=== PATIENT | female | born 1940 | race Caucasian/White ===

== ENCOUNTER 2017-10-29 12:39 | Emergency (ER) | payer MEDICARE ==
[~2017-10-29] VITALS: Ht 162.6 cm; Wt 83.9 kg
[~2017-10-29 12:39] MED LIST: FLUOXETINE HCL20 MG; LEVOTHYROXINE50 MCG; OXYBUTYNIN CHLO10 MG; PRILOSEC20 MG
== END 2017-10-29 14:19 | disposition home or self-care (01) ==
LOC: ED 12:39
DX: S00.93XA Contusion of unspecified part of head, initial encounter (principal); S70.01XA Contusion of right hip, initial encounter; E03.9 Hypothyroidism, unspecified; F32.9 Major depressive disorder, single episode, unspecified; Z79.899 Other long term (current) drug therapy; W18.30XA Fall on same level, unspecified, initial encounter; Y92.89 Other specified places as the place of occurrence of the external cause
CPT/HCPCS: 99282

== ENCOUNTER 2020-10-28 13:32 | Observation (INO) | payer OTHER, MEDICARE ==
[~2020-10-28] VITALS: Ht 162.6 cm; Wt 86.5 kg
[2020-10-28] MEDS ORDERED: SULFAMETHOXAZO1 EAC1 PO (18:35)
--- NOTE | 2020-10-28 22:00 | NUR ---
THIS RN TRANSPORTED pt FROM ER TO FLOOR. 4PA TO MOVE FROM STRETCHER TO BED. pt TOLERATED WELL. CMS INTACT TO RIGHT FOOT, COOL TO THE TOUCH. SPLINT IN PLACE. pt HAS BRUISE TO LEFT BACK OF THE LEG AND DISCOLORED AREA IN GLUTEAL CLEFT. pt WAS ABLE TO GET UP PIVOT BSC, 2PA. VOID, BACK TO BED. LEG ELEVATED. ASSESSMENT DONE. JOHN CRAFT IN ROOM TO DO ADMISSION.
--- NOTE | 2020-10-28 22:15 | NUR ---
PT ADMITTED TO ROOM 119 FROM ED. RA, A/O, REQUIRED MAX ASSISTANCE TO MOVE FROM BED TO STRETCHER. RT FOOT/LEG WRAPPED TO KNEE WITH HORACIO WRAP. ONCE INTO BED, PT WAS TRANSFERED TO BSC, USED FWW BSC, BY GEAR MACHINE OPERATOR GENERAL AND PT PRIMARY RN.
--- NOTE | 2020-10-28 23:03 | NUR ---
NOTIFIED BY LUANA LOPEZ THAT pt IS REPORTING DISCOMFORT IN UPPER GASTRIC AREA. pt STATED "IT FEELS LIKE GAS. I GET IT SOMETIMES." BLOOD PRESSURE WNL, NO CARDIAC ISSUES NOTED ON TELE. pt SITTING UP TO DRINK ENSURE.
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
--- NOTE | 2020-10-28 23:08 | NUR ---
pt BURPED AND REPORTS THAT PAIN IS NOW RELIEVED.
--- NOTE | 2020-10-29 00:30 | NUR ---
CALL LIGHT ON. ASSISTED pt TO REPOSITION. PAIN "OKAY" AT THIS TIME. CALL LIGHT WITHIN REACH. SITTING IN BED WATCHING TV.
--- NOTE | 2020-10-29 02:30 | NUR ---
2 PA TO BEDSIDE COMMODE. PATIENT IS BACK IN BED. WATER WITHOUT ICE REFILLED. NO OTHER NEEDS AT THIS TIME.
--- NOTE | 2020-10-29 02:31 | NUR ---
CALL LIGHT ON. pt UP TO BSC 2PA PIVOT TRANSFER. SMALL VOID. pt BACK TO BED. ASSESSMENT DONE. CMS INTACT ON RIGHT FOOT, NOW WARM AND PINK. ELEVATED. pt DENIES PAIN. RESTING IN BED. CALL LIGHT WITHIN REACH.
--- NOTE | 2020-10-29 04:30 | NUR ---
ROUNDED ON pt. RESTING IN BED WITH EYES CLOSED, RESPIRATIONS REGULAR. RIGHT LEG ELEVATED. CALL LIGHT WITHIN REACH.
--- NOTE | 2020-10-29 05:56 | NUR ---
IN TO DO VITALS. pt REPORTED NEW NUMBNESS AND TINGLING IN FINGERS AND TOES. PULSES WELL FELT. pt UP TO VOID BSC. CALL LIGHT WITHIN REACH. 2PA FWW.
--- NOTE | 2020-10-29 06:09 | NUR ---
CALL LIGHT ON. pt VOIDED. UP TO CHAIR, 2PA FWW PIVOT. LEGS ELEVATED. CALL LIGHT WITHIN REACH.
--- NOTE | 2020-10-29 07:15 | NUR ---
BEDSIDE HANDOFF REPORT RECEIVED FROM SPECIALIST MANAGERS RN. PT SITTING IN CHAIR, DENIES NEEDS AT THIS TIME.
--- NOTE | 2020-10-29 07:42 | NUR ---
PT AWAKE IN CHAIR. PT VERY CONCERNED ABOUT A CAT AT HOME THAT NEEDS TAKEN CARE OF. PT SEEMS STRESSED ABOUT HOME LIFE, SAYS THERE ARE NO CONTACTS IN TOWN. THIS KNITTING MACHINE TENDER NOTIFIED PT ABOUT CASE MANAGEMENT DAVID. JOHN OCHOA NOTIFIED. PT WHITE BOARD UPDATED AND WARM CLOTH GIVEN. FRESH WATER GIVEN. CALL LIGHT WITHIN REACH, NO FURTHER NEEDS AT THIS TIME.
--- NOTE | 2020-10-29 08:44 | NUR ---
PT SITTING IN CHAIR. PT ON ROOM AIR, LUNG SOUNDS CLEAR, DENIES SOB. PT REPORT OF NUMBNESS THAT HAS BEEN GRADUALLY INCREASING OVER THE LAST SEVERAL MONTHS IN ALL EXTREMITITES, CURRENTLY NO WORSE THAN USUAL. PT DENIES NAUSEA, BOWEL TONES ACTIVE, TOLERATING REGULAR DIET, BREAKFAST AT BASELINE. WITH WITH SPLINT TO RIGHT FOOT, PULSE PALPABLE, CAP REFILL 1-2 SECONDS, TOES WARM. DISCUSSED PLAN OF CARE, PT CONCERNED ABOUT SOCIAL PROBLEMS, CASE MANAGEMENT AWARE OF CONCERNS AND WILL ROUND ON PT TODAY. PT DENIES OTHER NEEDS AT THIS TIME.
[2020-10-29] MEDS ORDERED: TYLENOL325 MG PO (09:29)
[2020-10-29] MEDS ORDERED: NASAL DECONGES120 MG PO (09:29)
[2020-10-29] MEDS ORDERED: SYNTHROID75 MCG PO (09:29)
[2020-10-29] MEDS ORDERED: MUCINEX600 MG PO (09:30)
[2020-10-29] MEDS ORDERED: TUMS SMOOTHIES300 MG PO (09:31)
[2020-10-29] MEDS ORDERED: GAS-X125 M1 PO (09:31)
--- NOTE | 2020-10-29 09:31 | NUR ---
MED REC COMPLETE
--- NOTE | 2020-10-29 10:30 | NUR ---
Pt. resides in a house in [place]. She is currently getting and plans on moving to [place] the end of the month with her daughter. She states concern as spouse left 8 days ago and she has not been able to contact. Her cat is at home and locked in the garage She has a walker at home, but does not feel secure with it as it is a 4 wheel walker. She is unsure, but thinks she may need to be non Wt bearing for 6 weeks, she has not seen Dr. Encarnacion at this time. Per [address] Shipley, pt will be able to dc today. She denies having anyone who can assist her. She denies friends and states she has no one she can call. She was able to find her daughter's phone number in her purse and I dailed the number for her. Daughter planned on arriving the end of the month to assister her to move. Pt given information on ordering groceries on line, [employer] for [employer], She signed the contract for [employer]. Transport will cook pickled meat FWW walker and bring to the hospital for pt to dc to home with , referral sent to Margarette Godoy to check in on pt. Pt may need assist with food or meals. Pt is aware of all the above and denies other needs. Transport will cook pickled meat pts wc from [facility] and then pick pt up for transport to home at 4 pm.
--- NOTE | 2020-10-29 10:44 | NUR ---
SPOKE WITH KEENA AT DR AYALA OFFICE REGARDING DC, WB STATUS AND FU APPT. SCHEDULED FOR THIS WEDNESDAY AND NON WEIGHTBEARING UNTIL APPT WITH HIM
--- NOTE | 2020-10-29 14:00 | NUR ---
Notified by staff, pt now stating she is unable to get out of the chair or walk without assist. Into room with charge nurse. Spoke with pt as earlier she stated she is walking well with the walker. Asked pt to stand with walker and walk in the room. Pt has great difficulty standing and is very shakey. She is unable to take a step as she is nonwt bearing. Discussed options and pts states she can afford an assisted living. Discussed assisted livings in the area and suggested she pick one which has a respite bed as she would like to check for a bed a [facility]. Called and spoke with Ewa and she will check for a bed availability in their [facility] and in their respite room in the main building.
--- NOTE | 2020-10-29 14:21 | NUR ---
PT ASSISTED FROM BSC TO CHAIR. PT VERY UNSTEADY ON FEET AND NEEDED QUEING FOR PROPER USE OF WALKER, DISCUSSED SAFETY AT HOME AND PT HAS SOME OBSTICALS TO GET INTO HER HOME. THIS RN HAS CONCERNS ABOUT PT SAFETY FOR DISCHARGE, DISCUSSED WITH CASE MANAGEMENT AND THEY WILL COME TO SPEAK TO PT.
--- NOTE | 2020-10-29 15:00 | NUR ---
Received call from [facility]. Respite bed is available and she will be here tomorrow at 1330 to speak with pt and discuss cost and what will be provided. Updated pt and encouraged pt to practice pivot transfers from bed to commode. PT in room and encouraged pt to practice transfer at this time.
--- NOTE | 2020-10-29 17:25 | NUR ---
PT ASSISTED TO ORDER DINNER. UPDATED ON PLAN OF CARE AND ASSISTED LIVING FACILITY EVALUATION TOMORROW. PT DENIES OTHER NEEDS AT THIS TIME.
--- NOTE | 2020-10-29 17:56 | NUR ---
PT ON ROOM AIR, LUNG SOUNDS CLEAR. IV SALINE LOCKED. TOLERATING DIET. PT WAS UNSAFE FOR DISCHARGE MOBILITY WAS POOR. 1PA WITH FWW, P.T. PLAN FOR ASSISTED LIVING FACILITY EVAL TOMORROW. VOIDING QS. NON WEIGHT BEARING TO RLE, SPLINT IN PLACE.
--- NOTE | 2020-10-29 19:28 | NUR ---
RECEIVED REPORT FROM JOHN OCHOA. pt RESTING IN CHAIR, FINISHED WITH DINNER. NO REQUESTS AT THIS TIME. WHITEBOARD UPDATED. CALL LIGHT WITHIN REACH.
--- NOTE | 2020-10-29 20:50 | NUR ---
ALFRED LOPEZ AND MARLENY LOPEZ IN ROOM TO ASSIST pt TO BED.
--- NOTE | 2020-10-29 21:27 | NUR ---
pt REQUESTED THAT HER COME VISIT. ASSESSMENT DONE. pt DENIED PAIN AT THIS TIME. CMS INTACT. NO CHANGES IN NUMBNESS AND TINGLING. pt STATED "I HAD A BANDAID ON MY FINGER AND I TOOK IT OFF. DO YOU KNOW WHY IT WAS THERE?" pt UNABLE TO RECALL WHAT HAPPENED TO HAND BUT WAS ABLE TO RECALL EVENTS LEADING TO HER HOSPITALIZATION. RULA ARRIVED. CALL LIGHT WITHIN REACH.
--- NOTE | 2020-10-29 22:05 | NUR ---
ROUNDED ON pt. REPORTED A PRODUCTIVE DISCUSSION WITH RULA. pt REPORTED SHE WILL HAVE A MEETING AT 1330 WITH [facility] AND SHE IS LOOKING FORWARD TO HAVING MORE HELP. PROVIDED A PUDDING PER REQUEST. RIGHT LEG ELEVATED. CALL LIGHT WITHIN REACH.
--- NOTE | 2020-10-29 23:32 | NUR ---
THIS WOOD PATTERNMAKER APPRENTICE AND PRIMARY RN WILMA HELPED PATIENT USE THE BEDSIDE COMMODE. PATIENT IS BACK IN BED NOW. CALL LIGHT WITHIN REACH. NO OTHER NEEDS AT THIS TIME.
--- NOTE | 2020-10-30 01:30 | NUR ---
ROUNDED ON pt. RESTING IN BED WITH DARK GLASSES ON. RESPIRATIONS REGULAR AND UNLABORED. RIGHT LEG ELEVATED. CALL LIGHT WITHIN REACH.
--- NOTE | 2020-10-30 02:15 | NUR ---
CHECKED ON pt. pt SITTING ON SIDE OF BED. REPORTED THAT SHE NEEDED TO URINATE. 2PA TO BSC. INCONT VOID AND MEASURED VOID. pt MOVED BACK TO BED PIVOT TRANSFER. ASSESSMENT DONE. DENIES PAIN AT THIS TIME. pt RESTING IN BED, RIGHT FOOT ELEVATED. CALL LIGHT WITHIN REACH.
--- NOTE | 2020-10-30 02:32 | NUR ---
HEARD SOMEONE SAYING TARUN. FOUND PATIENT DANGLING BY THE BED STATED SHE CANNOT FIND THE CALL LIGHT. 2 PA TO BEDSIDE COMMODE. CHANGED WHITE CHUX AND PULL UPS. PATIENT IS BACK IN BED. CALL LIGHT WITHIN REACH. WATER REFILLED WITHOUT ICE.
--- NOTE | 2020-10-30 04:03 | NUR ---
CALL LIGHT ON. pt UP TO VOID, 2PA PIVOT TRANSFER TO BSC. pt RATED BACK PAIN 5/10 PRN GIVEN (SEE MAR). NO FURTHER REQUESTS AT THIS TIME. pt LAYING IN BED. LEGS ELEVATED.
--- NOTE | 2020-10-30 06:00 | NUR ---
ROUNDED ON pt. RESTING IN BED WITH EYES CLOSED, RESPIRATIONS REGULAR AND UNLABORED. CALL LIGHT WITHIN REACH.
--- NOTE | 2020-10-30 06:53 | NUR ---
pt WOKE TO VOICE. 2PA PIVOT TO BSC. VOID, BACK TO BED. VITALS DONE. NO REQUESTS AT THIS TIME. CALL LIGHT WITHIN REACH.
--- NOTE | 2020-10-30 07:15 | NUR ---
TOOK REPORT ON PT. PT IN ROOM WAITING FOR BREAKFAST. DENIES NEEDS AT THIS TIME.
--- NOTE | 2020-10-30 09:00 | NUR ---
In to speak with Zoya, she is wanting an update. REminded we had discussed yesterday afternoon, Ewa from [facility] will visit and see her this afternoon at 1330 to evaluate for placement to her AFC. Discussed with pt if she feels she is able to transfer self. Pt states she cannot and I will update Ewa prior to her visit pt is not safe in transferring on her own and will require 1 person assist for transfers at night.
--- NOTE | 2020-10-30 10:00 | NUR ---
PATIENT ASSISTED TO CHAIR BY KARYN METZGER. VITALS AND I&OS CHARTED. LINENS CHANGED, CALL LIGHT IN REACH, NO OTHER NEEDS AT THIS TIME
--- NOTE | 2020-10-30 13:01 | NUR ---
PT SITTING IN CHAIR WATCHING TV EATING LUNCH. CALL LIGHT IN REACH. PT DENIES NEEDS AT THIS TIME.
--- NOTE | 2020-10-30 13:32 | EKG ---
[facility] [address] [facility] [place] [address] Signed Normal sinus rhythm Normal ECG No previous ECGs available Confirmed by RAMO ALEJANDRA MD ([id number]) on 10/30/2020 1:32:00 PM Electronically Signed By: RAMO ALEJANDRA MD 10/30/20 1332 PATIENT NAME: PATRICIO BAJWA Electrocardiogram DATE OF : 40 PHYSICIAN: RAMO ALEJANDRA MD REPORT #: [id number] REPORT IS CONFIDENTIAL AND NOT TO BE RELEASED WITHOUT AUTHORIZATION
--- NOTE | 2020-10-30 13:35 | NUR ---
Ewa here from [facility] and introduced to patient. Later notified by staff Ewa would like to speak with me and returned to room. Pt and Ewa have come to an agreement for pt to admit. Ewa asking if pt can wait another day, explained she cannot as she is on OBS and will need to dc today as she does not meet requirement for IP stay due to not meeting medical necessity. Ewa agrees for pt to admit today. Pt is now wanting a wc and I will call [facility] [place] and add a wc to walker order. UPdated pt has an appt tomorrow with Dr. Encarnacion and we will schedule the dial a ride. Pt in agreement and listening to conversation. Pt denies other needs and will go this afternoon to [facility] Respite room (as she is unable to move in bed and personal belongings). I will ask Dr. Encarnacion to order HH after he see's her tomorrow and determines her needs.
--- NOTE | 2020-10-30 14:13 | NUR ---
PT CURRENTLY IN ROOM WITH EMPLOYEE FROM [facility].
--- NOTE | 2020-10-30 14:27 | NUR ---
PATIENT AWAKE IN CHAIR. VITALS AND I&OS CHARTED. NO NEEDS AT THIS TIME
--- NOTE | 2020-10-30 15:10 | NUR ---
Staff notified wc van will pu pt in the next [address] Encarnacion and asked if he would order HH PT/OT for pt if needed, after he sees her tomorrow and he replied, "he will try".
== END 2020-10-30 15:05 | disposition home or self-care (01) ==
LOC: ED 13:32 → MS 13:33
PROVIDERS: ADMIT Internal Medicine; ATTEND Internal Medicine
DX: S82.54XA Nondisplaced fracture of medial malleolus of right tibia, initial encounter for closed fracture (principal); G47.419 Narcolepsy without cataplexy; G47.30 Sleep apnea, unspecified; E03.9 Hypothyroidism, unspecified; V49.9XXA Car occupant (driver) (passenger) injured in unspecified traffic accident, initial encounter; Z79.899 Other long term (current) drug therapy; Z20.822 Contact with and (suspected) exposure to COVID-19
CPT/HCPCS: 29515; 70450; 71045; 72125; 73610; 80053; 81001; 83735; 84484; 85025; 87077; 87088; 87186; 93005; 93010; 94640; 97161; 99285-25; C9803; G0378; J0696; J7030; U0003